=== PATIENT | male | born 1995 | race African-American/Black ===

== ENCOUNTER 2017-11-08 10:23 | Emergency (ER) | payer SELFPAY ==
[2017-11-08] MEDS ORDERED: Clindamycin 150 MG CAP ONE (12:41)
[2017-11-08] MEDS ORDERED: Acetaminophen/Codeine 30-300mg Tablet ONE (12:41)
[2017-11-08] MEDS ORDERED: Dexamethasone 10 MG/ML VIAL ONE (12:41)
== END 2017-11-08 12:56 | disposition home or self-care (01) ==
LOC: ERS 10:23
DX: K08.89 Other specified disorders of teeth and supporting structures (principal); L03.211 Cellulitis of face
CPT/HCPCS: 99283; J1100

== ENCOUNTER 2018-12-13 12:50 | Emergency (ER) | payer SELFPAY ==
--- NOTE | 2018-12-13 13:33 | RAD ---
FOUR VIEWS LEFT KNEE: COMPARISON: None. History Left knee pain and swelling after moving furniture yesterday. FINDINGS: Four views left knee show no evidence of acute fracture or dislocation. No degenerative changes are seen. No knee effusion is present. IMPRESSION: No evidence of acute osseous abnormality. POS: [facility]
== END 2018-12-13 14:00 | disposition home or self-care (01) ==
LOC: ERS 12:50
DX: M25.562 Pain in left knee (principal)

== ENCOUNTER 2019-01-03 14:56 | Emergency (ER) | payer SELFPAY ==
--- NOTE | 2019-01-03 17:17 | ULT ---
VENOUS DOPPLER ULTRASOUND OF THE LEFT LOWER EXTREMITY 01/03/19 HISTORY: Left lower extremity pain and edema TECHNIQUE: Squires scale, color flow and spectral doppler imaging of the deep venous system with left lower extremi ty is performed. FINDINGS: There is good flow, compression, and augmentation noted in the common femoral, femoral, deep femoral, popliteal, posterior tibial and greater saphenous veins. IMPRESSION: No evidence of DVT in the left lower extremity. POS: OFF
== END 2019-01-03 16:45 | disposition home or self-care (01) ==
LOC: ERS 14:56
DX: S83.92XA Sprain of unspecified site of left knee, initial encounter (principal); W22.8XXA Striking against or struck by other objects, initial encounter

== ENCOUNTER 2019-10-21 07:45 | Emergency (ER) | payer BC, SELFPAY | END 2019-10-21 08:07 | disposition home or self-care (01) | LOC: ERS 07:45 | DX: L25.0 Unspecified contact dermatitis due to cosmetics (principal) | CPT/HCPCS: 99282 ==

== ENCOUNTER 2020-09-16 08:12 | Emergency (ER) | payer SELFPAY ==
[2020-09-16 15:47] LABS: SARS-CoV-2 MS2 Positive; SARS-CoV-2 N Gene Negative; SARS-CoV-2 S Gene Negative; SARS-CoV-2 by NAA Not Detected (NotDetected); SARS-CoV-2 orf1ab Negative
== END 2020-09-16 09:43 | disposition home or self-care (01) ==
LOC: ERS 08:12
DX: J06.9 Acute upper respiratory infection, unspecified (principal); Z20.828 Contact with and (suspected) exposure to other viral communicable diseases
CPT/HCPCS: 87635; 87804; 99283; U0003

== ENCOUNTER 2020-10-29 08:44 | Emergency (ER) | payer SELFPAY ==
[2020-10-29] MEDS ORDERED: Boostrix 0.5 ML (Tdap) VIAL ONE (08:58)
[2020-10-29] MEDS ORDERED: Acetaminophen 500 MG TAB ONE (09:06)
== END 2020-10-29 09:43 | disposition home or self-care (01) ==
LOC: ERS 08:44
DX: S00.81XA Abrasion of other part of head, initial encounter (principal); Z23 Encounter for immunization; V49.40XA Driver injured in collision with unspecified motor vehicles in traffic accident, initial encounter
CPT/HCPCS: 90471; 90715; G0390

== ENCOUNTER 2021-01-07 20:24 | Emergency (ER) | payer SELFPAY | END 2021-01-07 21:41 | disposition home or self-care (01) | LOC: ERS 20:24 | DX: K08.89 Other specified disorders of teeth and supporting structures (principal) | CPT/HCPCS: 99282 ==

== ENCOUNTER 2021-03-20 11:24 | Emergency (ER) | payer SELFPAY | END 2021-03-20 13:00 | disposition home or self-care (01) | LOC: ERS 11:24 | DX: S39.012A Strain of muscle, fascia and tendon of lower back, initial encounter (principal); V89.2XXA Person injured in unspecified motor-vehicle accident, traffic, initial encounter | CPT/HCPCS: 72100 ==

== ENCOUNTER 2021-06-30 09:06 | Emergency (ER) | payer SELFPAY ==
[2021-06-30 17:30] LABS: SARS-CoV-2 PCR by NAA DETECTED (NotDetected)
== END 2021-06-30 10:03 | disposition home or self-care (01) ==
LOC: ERS 09:06
DX: U07.1 COVID-19 (principal)
CPT/HCPCS: 99283; U0003; U0005

== ENCOUNTER 2021-07-07 11:14 | Emergency (ER) | payer SELFPAY | END 2021-07-07 12:07 | disposition home or self-care (01) | LOC: ERS 11:14 | DX: Z71.89 Other specified counseling (principal) | CPT/HCPCS: 99281 ==

== ENCOUNTER 2022-10-21 23:11 | Emergency (ER) | payer OTHER, SELFPAY | END 2022-10-22 03:14 | disposition home or self-care (01) | LOC: ERS 23:11 | DX: S93.421A Sprain of deltoid ligament of right ankle, initial encounter (principal); Y93.67 Activity, basketball ==

== ENCOUNTER 2025-09-19 09:40 | Emergency (ER) | payer SELFPAY ==
[2025-09-19] MEDS ORDERED: Dicyclomine 20 MG TAB ONE (11:33)
== END 2025-09-19 12:00 | disposition home or self-care (01) ==
LOC: ERS 09:40
DX: K52.9 Noninfective gastroenteritis and colitis, unspecified (principal)
CPT/HCPCS: 99283; Q0162